=== PATIENT | female | born 1975 | race Caucasian/White ===

== ENCOUNTER 2021-08-01 16:16 | Outpatient (REF) | payer SELFPAY ==
[2021-08-02 07:59] LABS: HBS Num1 0.59 mIU/mL (0-7.99); ~Hepatitis B Surface Antibody NONREACTIVE (Nonreactive)
== END 2021-08-01 16:17 | disposition home or self-care (01) ==
LOC: HO.LNP 16:16
PROVIDERS: Visit Provider Internal Medicine
DX: Z01.84 Encounter for antibody response examination (principal)
CPT/HCPCS: 86706

== ENCOUNTER 2022-09-18 08:37 | Emergency (ER) | payer BC, SELFPAY ==
--- NOTE | ~2022-09-18 | XR_ITS ---
EXAMINATION: XR ANKLE, RIGHT CLINICAL INFORMATION: Twisted injury, pain COMPARISON: None TECHNIQUE: AP, lateral, and mortise views of the right ankle. FINDINGS: There is no visible acute fracture or dislocation. There is moderate lateral malleolar soft tissue swelling.. Alignment is anatomic. Incidental finding of this small calcaneal heel and retrocalcaneal enthesophytes. Joint spaces are maintained. No joint effusion. XR/XR ankle RT 2V IMPRESSION: Moderate lateral malleolar soft tissue swelling suggestive of ligamentous injury. No visible acute fracture seen. Small retrocalcaneal and calcaneal heel enthesophytes.
[2022-09-18 08:57] VITALS: BP 140/67; PULSE 74; RESP 18; TEMP 36.2; O2SAT 98; BMI 25.0
--- NOTE | 2022-09-18 10:09 | ED.LOWEXIN ---
HPI - Extremity Injury (Lower) General Chief Complaint: Extremity Injury, Lower Stated Complaint: R Ankle Injury 09/16/22 Time Seen by Provider: 09/18/22 10:01 Source: patient Mode of arrival: ambulatory Limitations: no limitations History of Present Illness HPI Narrative: 47-year-old female c no Sig PMHx presenting to the ER with complaints of right ankle pain/swelling after she had a twist injury on Saturday while she was at the gym performing squats. She reports since then she has been having pain with walking and has been limping. She reports to the same foot/ankles she broke it approximately 1-2 years ago and it never healed appropriately she believes due to she did not wear the boot she had prescribed. She denies any recent falls, head injury, neck injury, back injury, paresthesias, extremity swelling, calf tenderness, recent travel or any other symptoms complaints concerns or injuries at this time. complaint: ankle injury and foot injury Onset (ago): day(s) (3) Injury: Right: ankle and foot Type of Injury: eversion Place: other (at the gym ) Severity: mild Relieving factors: nothing Exacerbating factors: weight bearing, movement and palpation Context: other (Exercising twist injury) Associated symptoms: swelling and able to partially bear weight Other symptoms: none Related Data Previous Rx's Medication Instructions Recorded naproxen 500 mg tablet 500 mg PO BID PRN pain #14 tabs 09/18/22 tramadol 50 mg tablet 50 mg PO BID PRN pain #14 tabs 09/18/22 Allergies Allergy/AdvReac Type Severity Reaction Status Date / Time No Known Allergies Allergy Verified 09/18/22 08:56 Review of Systems Review of Systems: Constitutional : No Weight loss, No Fever, No Chills, No Night Sweats, No Fatigue, No Malaise ENT/Mouth : No Hearing loss, No Ear Pain, No Nasal Congestion, No Sinus Pain, No Hoarseness, No sore throat, No Rhinorrhea, No Swallowing Difficulty Eyes: No Eye Pain, No Swelling, No Redness, No Foreign Body, No Discharge, No Vision Changes Cardiovascular : No Chest Pain, No SOB, No Dyspnea on Exertion, No Orthopnea, No Edema, No Palpitations Respiratory : No Cough, No Sputum, No Wheezing, No Smoke Exposure, No Dyspnea Gastrointestinal : No Nausea, No Vomiting, No Diarrhea, No Constipation, No abdominal Pain, No Hematochezia, No Melena Genitourinary : no irregular bleeding, No Dysuria, No Urinary Frequency, No Hematuria, No Urinary Incontinence, No Urgency, No Flank Pain, No Urinary Flow Changes, No Hesitancy Musculoskeletal : + right ankle/foot joint pain, No Myalgias, No Joint Swelling Skin : No Skin Lesions, No rash Neuro : No Weakness, No Numbness, No Paresthesias, No Loss of Consciousness, No Dizziness, No Headache Psych : No Anxiety/Panic, No Depression, No SI/HI/AH/VH, No Social Issues, Heme/Lymph: No Bruising, No Bleeding,No Lymphadenopathy Endocrine : No Polyuria, No Polydipsia, No Temperature Intolerance Yes all other systems are reviewed and are negative [facility] Past Medical History Attestation statement: The following information was validated with the patient. Source: old records reviewed and nursing notes reviewed Social History Social History Advance Directives: No Physical Exam Vital Signs: Vital Signs: Last Vital Signs Temp 97.2 F 09/18/22 08:57 Pulse 74 09/18/22 08:57 Resp 18 09/18/22 08:57 BP 140/67 H 09/18/22 08:57 Pulse Ox 98 09/18/22 08:57 O2 Del Method 09/18/22 08:57 BMI result Body Mass Index 25.0 vital signs have been reviewed as normal and appeared to be correct. Blood pressure normal Heart rate normal. Respiration rate normal. Temperature normal. Oxygen saturation normal. Appearance: Alert. Oriented X3. No acute distress. Head: Normal external exam. Normocephalic. Atraumatic. Eyes: PERRLA. EOMI. Conjunctiva and sclera normal. Eyelids normal. ENT: Pharynx normal. Uvula midline. Moist mucous membranes. Neck: Normal inspection. Neck supple. FROM. CVS: Normal heart rate and rhythm. Respiratory: No respiratory distress. Painless inspiration. Skin: Skin warm and dry. Normal skin color. Normal skin turgor. No rashes/lesions/lacerations noted. Extremities: Patient with tenderness palpation to the posterior aspect of the right ankle/foot joint over the Achilles tendon although Achilles tendon appears to be intact. Negative Willett's test. No tenderness palpation older the lateral or medial malleolus. Obvious deformities are noted. Patient has full range of motion of the right ankle/foot joint. Otherwise no obvious ligamentous or tendon injury noted. Patient has full range of motion of all other joints and nontender to all other joints. Neuro: Oriented X 3. No motor deficit. No sensory deficit. Reflexes normal. Normal steady gait. No focal neuro deficits noted. Vascular: + radial pulses/+ 2 distal pedal pulses/+2 dorsalis pedis b/l. Normal cap refill. No cyanosis noted to upper extremity nails and lower extremity toes nails. Course Course Course Narrative: 47yoF presenting to the ER with complaints of right ankle pain/swelling after she had a twist injury on Saturday while she was at the gym performing squats. She reports since then she has been having pain with walking and has been limping. On exam no obvious deformities. No obvious ligamentous or tendon injury noted. Achilles tendon is intact not ruptured. Negative Willett test. No lower extremity edema or calf tenderness noted. X-ray obtained and revealed moderate lateral malleolar soft tissue swelling suggests of ligamentous injury although patient does not have any tenderness over the lateral malleolus. No fractures noted. She also has bone spurs noted. Will place an ortho boot provide crutches and treat symptomatically and instructed follow-up orthopedics if symptoms persist. Patient understands agrees with this plan. MDM - Extremity Injury (Lower) Medical Records Attestation: I reviewed the patient's medical records. Imaging Data Right ankle x-ray: Attestation: I personally reviewed and interpreted this imaging study as follows: Radiologist's impression: FINDINGS: There is no visible acute fracture or dislocation. There is moderate lateral malleolar soft tissue swelling.. Alignment is anatomic. Incidental finding of this small calcaneal heel and retrocalcaneal enthesophytes. Joint spaces are maintained. No joint effusion.? XR/XR ankle RT 2V IMPRESSION: Moderate lateral malleolar soft tissue swelling suggestive of ligamentous injury. No visible acute fracture seen. ? Small retrocalcaneal and calcaneal heel enthesophytes. Procedures Orthopedic Splinting/Casting Injury #1: Side: right Lower Extremity Injury Location: ankle and foot Lower Extremity Immobilizer: boot orthosis Other Orthopedic Equipment: crutches Discharge Plan Discharge Clinical Impression: Ankle sprain and strain Patient Disposition: Home, Self-Care Instructions: Ankle Sprain (ED) Prescriptions: New naproxen 500 mg tablet 500 mg PO BID PRN (Reason: pain) Qty: 14 0RF tramadol 50 mg tablet 50 mg PO BID PRN (Reason: pain) Qty: 14 0RF Referrals: [facility] [place] [facility] [Provider Group] (call to make a follow up appointment if symptoms persist) Stand Alone Forms: Work/School Release
== END 2022-09-18 10:45 | disposition home or self-care (01) ==
PROVIDERS: Emergency Provider Emergency Medicine
DX: S93.401A Sprain of unspecified ligament of right ankle, initial encounter (principal); X50.1XXA Overexertion from prolonged static or awkward postures, initial encounter; Y93.9 Activity, unspecified; Y92.9 Unspecified place or not applicable; Y99.9 Unspecified external cause status
CPT/HCPCS: 73600; 99283; 99284

== ENCOUNTER 2022-12-03 11:00 | Outpatient (RCR) | payer BC, SELFPAY ==
--- NOTE | 2022-10-29 15:09 | MHC.PT.EP ---
[facility] [place] [facility] [place] [facility] [place] Office [address] [place] [address] [phone] F: [phone] F: [phone] F: [phone] F: [phone] Physical Therapy Plan of Care Date of Evaluation: Date of Surgery: Diagnosis: R ankle sprain Assessment: Patient is a pleasant 47 y.o. female who is referred to PT by Leonardo Carlos PA-C with Dx of R ankle sprain. PT diagnosis is consistent with lateral ligamentous ankle sprain, also effecting achilles tendon. Patient impairments include pain, swelling, decreased ROM, weakness, reduced balance, antalgic gait. Patient current functional limitations are difficulty with sustained standing for work, ambulation, reciprocal stair use, unable to do routine at gym. Patient will benefit from skilled PT to address aforementioned impairments and functional limitations to meet established goals. Frequency and Duration: The patient will be seen 1x/week for 4 weeks Short Term Goals: 2 weeks Patient demonstrates consistency and independence with HEP to self manage symptoms. Patient presents with reduced localized swelling to R lateral ankle to reduce pain 4/10. Sound Editor Goals: 4 weeks Patient presents with increased R ankle DF 5 degrees to restore normalized gait pattern to ambulate 100 ft. Patient presents with increased R ankle eversion stretch 4+/5 to be able to perform reciprocal stairs for use at home. Treatment Plan: Modalities to reduce pain, spasms and effusion. Manual therapy to restore motion and function. Therapeutic exercise to improve strength and flexibility. Neuromuscular re-education for posture and balance. Therapeutic activities to return to functional activities of daily living. Electronically signed by: Esteban Hicks, PT, DPT Please sign and return to therapist. Thank you for your referral.
== END 2022-12-04 10:34 | disposition home or self-care (01) ==
LOC: HO.PT 11:00
PROVIDERS: Visit Provider Physician Assistant
DX: S93.401D Sprain of unspecified ligament of right ankle, subsequent encounter (principal)
CPT/HCPCS: 97035; 97110; 97112; 97140; 97161